=== PATIENT | female | born 1990 | race Caucasian/White ===

== ENCOUNTER 2016-09-23 12:44 | Emergency (ER) | payer OTHER ==
[~2016-09-23] VITALS: Ht 157.5 cm; Wt 72.6 kg
--- NOTE | 2016-09-23 14:40 | NUR ---
Patient discharged to home in stable conditon. Written and verbal after care instructions given. Patient verbalizes understanding of instructions.
== END 2016-09-23 14:43 | disposition home or self-care (01) ==
LOC: ER 12:44
DX: H66.91 Otitis media, unspecified, right ear (principal)
CPT/HCPCS: 99283; A4663

== ENCOUNTER 2024-06-13 09:53 | Emergency (ER) | payer MEDICAID ==
[~2024-06-13] VITALS: Ht 157.5 cm; Wt 66.7 kg
[2024-06-13 10:20] LABS: *BILIRUBIN,URIN NEGATIVE (NEGATIVE); *CLARITY,URINE CLEAR (CLEAR); *COLOR,URINE YELLOW (YELLOW); *KETONES,URINE NEGATIVE (NEGATIVE); *PROTEIN,URINE NEGATIVE (NEGATIVE); *UROBILINOGEN,URINE 0.2 E.U./dl (NORMAL); LEUKOCYTE ESTERASE ,URINE NEGATIVE (NEGATIVE); NITRITE, URINE NEGATIVE (NEGATIVE); PH,URINE 6.5 (5.0-8.0); UGLUCOSE NEGATIVE (NEGATIVE)
[2024-06-13 10:33] LABS: *BLOOD, URINE TRACE (NEGATIVE); *URINE HCG, QUAL NEGATIVE (NEGATIVE); BACTERIA,URINE FEW /HPF (NONE SEEN); SQUAMOUS EPITHELIAL CELL,UR FEW /HPF (NONE SEEN); WBC,URINE 0-3 /HPF (0-3)
[2024-06-13] MEDS ORDERED: FLUC150T PO (10:42)
[2024-06-13] MEDS ORDERED: METR-147 PO (10:42)
[2024-06-13] MEDS ORDERED: FLUCONAZOLE 100 MG TABLET ONE (10:43)
[2024-06-13] MEDS: FLUCONAZOLE 100 MG TABLET PO ONE (10:44)
[2024-06-13 10:51] VITALS: BP 106/64; TEMP 98.1; O2SAT 100
== END 2024-06-13 10:58 | disposition home or self-care (01) ==
LOC: ER 09:53
DX: N89.8 Other specified noninflammatory disorders of vagina (principal)
CPT/HCPCS: 84703; A4606; A4663